=== PATIENT | male | born 1985 | race Caucasian/White ===

== ENCOUNTER 2017-06-10 12:14 | Day surgery (SDC) | payer BC ==
[~2017-06-10] VITALS: Ht 175.3 cm; Wt 99.8 kg
--- NOTE | ~2017-06-10 | OR ---
[facility] [address] [facility] [place], [place] [address] Draft DATE OF PROCEDURE: 06/10/17 PREOPERATIVE DIAGNOSIS: Perirectal abscess. POSTOPERATIVE DIAGNOSIS: Perirectal abscess. PROCEDURE Evaluation under anesthesia, straight sigmoidoscopy, aspiration of abscess and sending some of that pus for culture, incision and drainage of abscess with packing with 0.5-inch Nu Gauze. SURGEON: Ayo France MD. INDICATIONS FOR PROCEDURE This is a fellow who has had this similar episode, he said this is the 4th time. It has already spontaneously drained before, this time he did not. He is from somewhere near [facility] here working at [employer]. The options of trying to drain this in the ED versus going to the OR were discussed by me plus VIKKI about complications, expected contact of surgery and he wanted to have it done in the OR. DESCRIPTION OF PROCEDURE He was taken to the operating room. They gave him a general anesthesia with LMA, gave him a couple of grams of Ancef because it had been a while since he got antibiotics since we had admitted him because he ate right before he came to the ER and had to let that food go through him. He had LMA anesthesia, prepped and draped in a sterile fashion after he was put in high stirrups. I did a digital anal exam. He had some pretty generous external hemorrhoids I could see when he was in high stirrups or internal wounds that were bulging out and I could not feel anything on that exam. I then did a straight sigmoidoscopy to about 16 cm. Saw no internal opening that I could identify as a cause of this. I then aspirated the area of fluctuance and got out about 4 mL of what looked like bloody pus and then I did a cruciate incision about a centimeter in each direction over the aspiration point. Pus came out with blood also. I then probed it gently with a clamp to see which directions everything went. It went toward the midline posteriorly, but did not across it. It went toward the anus. All in all, the abscess cavity was a good inch and a half by inch and a half. I then irrigated copiously with saline. I used Bovie cautery to extinguish some subcutaneous skin bleeding, packed it with a 4 x 4, held pressure on it, waited for him to mix up my concoction of 80 mg of tobramycin and 300 Cleocin, irrigated with about 300 mL of saline, irrigated with about 100 mL of that mixture. I then packed it with 0.5-inch dry Nu Gauze, put fluffs on, put ABD pad on and then taped it in place and then had him put net panties on it. Estimated blood loss was about 5 mL. Sponge and needle counts were inspected for report and is correct multiple times. He tolerated it well. He goes to the recovery room. We will PATIENT NAME: ERROL KAY OPERATIVE REPORT DATE OF : 85 PHYSICIAN: AYO FRANCE MD REPORT #: [id number] REPORT IS CONFIDENTIAL AND NOT TO BE RELEASED WITHOUT AUTHORIZATION [facility] [address] [place] [id number] Draft probably keep him in the hospital and I will send him home tomorrow. MD MOOSE Holland/Veronica /[id number] PATIENT NAME: ERROL KAY OPERATIVE REPORT DATE OF : 85 PHYSICIAN: AYO FRANCE MD REPORT #: [id number] REPORT IS CONFIDENTIAL AND NOT TO BE RELEASED WITHOUT AUTHORIZATION
--- NOTE | ~2017-06-10 | DS ---
[facility] [address] [place], [place] [address] Draft DATE OF DISCHARGE: 06/11/17 ADMISSION DIAGNOSES Recurrent perirectal abscess. Little bit overweight. Cigarette smoker. DISCHARGE DIAGNOSES Recurrent perirectal abscess. Little bit overweight. Cigarette smoker. OPERATIONS PERFORMED Evaluation under anesthesia. Straight sigmoidoscopy. Incision, drainage, and culture of perirectal abscess with packing. HISTORY The history was dictated by me, brought him in to the above mentioned procedure yesterday. He has done okay overnight. He had some itching. We put him on some Benadryl for that, stopped his Dilaudid, and he seems to be doing okay. He has had 1 sitz bath today and I advanced his drain out about an inch, taught him and his girlfriend how to do this. He is going to go home on Augmentin, Flagyl, Kefir, lactobacillus, Percocet, nicotine patches, and try to quit smoking per my recommendation, and I told him he will probably do the sitz bath b.i.d., have his girlfriend/fianc advance the packing out about an inch each time. He can take Advil in addition to the Percocet for further pain control. Maalox to get his bowels drawn, and if he gets too loose, he can stop that. Probably, I will see Dr. Singer in the office Monday or just to check him out and let Dr. Singer decide whether or not he should have be re packed when the packing comes out. I told if the packing came out, he should see Dr. Singer within a day or two and again let him monitor him. I am a [place] so I will be gone, yet he certainly can be followed up by the local general surgeon. With a little bit of luck, he will get over all of this. The patient apparently is from [place], [place], again somewhere near [place], [place] and for whatever reason, does not like [facility] and wants to come here for further follow-up, so I recommended he see Dr. Singer. All in all, he should do okay. In addition, he started describing what sounds like a pilonidal dimple on his [id number] baby. I told him I cannot figure out what he is talking about by his or his girlfriend's description and told to bring the baby when they see Dr. Singer and let Dr. Singer peak at the baby's bottom and give further advice. I will be talking to Dr. Singer about this fellow tomorrow and we wish everybody continue luck with his care. PATIENT NAME: ERROL KAY DISCHARGE SUMMARY DATE OF : 85 PHYSICIAN: AYO FRANCE MD REPORT #: [id number] REPORT IS CONFIDENTIAL AND NOT TO BE RELEASED WITHOUT AUTHORIZATION [facility] [address] [place], [place] [address] Draft MD MOOSE Holland/Tanvil /[id number] cc: Abdulkadir Singer MD PATIENT NAME: ERROL KAY DISCHARGE SUMMARY DATE OF : 85 PHYSICIAN: AYO FRANCE MD REPORT #: [id number] REPORT IS CONFIDENTIAL AND NOT TO BE RELEASED WITHOUT AUTHORIZATION
--- NOTE | ~2017-06-10 | HP ---
[facility] [address] [place], [place] [address] Draft DATE OF ADMISSION: 06/10/17 IDENTIFICATION This is a 32-year-old male, who came to the ER with perirectal pain. The patient thought it was a pilonidal cyst that he has had in the past. He said he has had this condition 3 prior times and then spontaneously the draining got well. He is here from somewhere close to in [place], [place], [place] of [place], working at the [employer] and this has been bothering him for a week. He denies fevers and no change in bowel movements and he denies any problems with incontinence, etc. On examination of his perirectal area, he has a postanal abscess, a little bit off to the right. Too tender to do a rectal exam. The option of trying to drain this in the ED versus taking him to the OR, p u t him in high stirrups, thorough evaluation under anesthesia, straight sigmoidoscopy, culture, incision and drainage was discussed by me with him and the different advantages and disadvantages of each. The disadvantage of going to the OR is mostly cost. T h e advantage is trying to get this things, so it do not come back anymore. He chose to have it done in the OR. Unfortunately he ate at 10:30 this morning and drank a little bit juice an hour ago. I discussed this issue with the Anesthesia and nurse film splicer, Sangita Saldana and we have to come to the conclusion that 4 o'clock this afternoon will probably be reasonable time to do this case, so we have it all setup for 1600. I told the ER doctor to go ahead and get labs, PT, PTT, chem panel, CBC, and give him some Zosyn 3.375 g and 500 mg of Flagyl and I will probably augment that with some Ancef when we get to the OR right before we cut. PARQ is accomplished by myself with this patient concerning my primary recommendation is to do this in the operating room. M y experience with these over the years and my training, the expected potential complications, which include, but are not limited to bleeding, infection, , local organ injury, needing further procedures, fistula, incontinence, and my experience with the same over the years, he wishes to proceed. We plan to do this operation at 1600 today. Probably, keep him here overnight, teach him how to do sitz baths with Epsom salt in the morning and how to advance the drain and get him home tomorrow. PAST MEDICAL HISTORY: He is allergic to nothing. MEDICATIONS: He takes no medicines. PAST SURGICAL HISTORY Prior surgery includes tonsils and adenoids. Some type of prostrate/bladder problem about 5 years ago when he had clots in his bladder. He has a history of plus/minus hypertension. Denies diabetes, tuberculosis, seizures or transfusion. SOCIAL HISTORY PATIENT NAME: ERROL KAY HISTORY AND PHYSICAL DATE OF : 85 PHYSICIAN: AYO PERRY MD REPORT #: [id number] REPORT IS CONFIDENTIAL AND NOT TO BE RELEASED WITHOUT AUTHORIZATION [facility] [address] [place], [place] [address] Draft Smokes Camel Crush less than a pack a day. Has not drank alcohol for over 2 years. There is no history of thromboembolic disease. He lives with a lady, his fiance. He has a [id number] child. 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 His hobby is [employer]. He lives in [place], [place]. REVIEW OF SYSTEMS Is positive for being a little bit overweight. Negative for FL, negative for stroke, negative for angina. Negative for lung disease yet. Negative for GI problems. Negative for musculoskeletal problems. Negative for problems except what he told me about his bladder issues 5 years ago. Negative for skin problems. Negative for blood problems such as hepatitis. Negative for endocrine problems. Negative for lymphatic problems. Negative for neurologic problems such as anxiety, depression, etc. IMPRESSION My impression is a robust young male who has this recurrent perirectal abscess issue, I believe, right now I am 99% sure this is perirectal abscess. I do not think he needs any further imaging as I think it is ready to pop on its own. PLAN Plan is to take him to the operating room, do EUA, straight sigmoidoscopy, culture, incise and drain, and tuck him in for the night and send him home in the morning as long as everything goes okay. I will teen counselor him about quitting smoking at some point, and we wish him well and expect him to do well. Ayo Perry MD JH/Tanvil /[id number] PATIENT NAME: ERROL KAY HISTORY AND PHYSICAL DATE OF : 85 PHYSICIAN: AYO PERRY MD REPORT #: [id number] REPORT IS CONFIDENTIAL AND NOT TO BE RELEASED WITHOUT AUTHORIZATION
--- NOTE | 2017-06-10 14:30 | NUR ---
PT ARRIVED FROM ED. ALERT AND ORIENETED. RATING PAIN NEAR ANUS 6/10, DENIES NAUSEA OR OTHER CONCERNS. TRANSFERRED TO BED INDEPENDENTLY. IV FLUSHES WELL. DARYN ANAL ABCESS MINIMALLY RED, NO DRAINAGE OR ODOR NOTED. PT ORIENTED TO ROOM, CALL LIGHT WITHIN REACH.
--- NOTE | 2017-06-10 15:50 | NUR ---
PT TRANSFERRED TO OR. AMB TO STRETCHER INDEPENDENTLY. LR ON STRAIGHT TUBING HANGING AND SCD'S ON, SURGICAL PREP WIPES COMPLETE.
--- NOTE | 2017-06-10 16:38 | NUR ---
06/10/17 1638 Katerina Taylor 1630 - PT ARRIVED TO PACU. ST ELEVATION NOTED ON MONITOR. SHINE WORKER AWARE, STATES NO ACTION NEEDED. OPA IN PLACE, JAW HELD. PT NOT YET RESPONDING TO STIMULI
--- NOTE | 2017-06-10 17:30 | NUR ---
PT RETURNED FROM PACU, TRANSFERRED INDEPENDENTLY TO BED FROM STRETCHER. PT RATING PAIN AT SURGICAL SITE /10. WOUND PACKED AND DRESSED WITH GAUZE, ABD, AND TAPE. MODERATE AMOUNT OF SEROSANGUINOUS DRAINAGE NOTED. PT ALERT AND ORIENTED, DENIES NAUSEA. SATTING 98% ON RA BUT O2 LEFT ON 2L PER ORDERS. IV INFUSING WNL. CALL LIGHT AND PERSONAL BELONGINGS WITHIN REACH. AT BEDSIDE.
--- NOTE | 2017-06-10 19:05 | NUR ---
REPORT RECEIVED FROM OFFGOING RN. PT AT BEDSIDE, PT DENIES NEEDS AT THIS TIME. CALL LIGHT WITHIN REACH.
--- NOTE | 2017-06-10 20:05 | NUR ---
PT'S UTILIZES CALL LIGHT, EXPRESSES CONCERN AT SEROUS DRAINAGE PRESENT TO ABD PAD TO BUTTOCKS. ABD PAD REMOVED. GAUZE UNDERNEATH ABD WITH MODERATE SEROSANGUINEOUS DRAINAGE PRESENT. ABD PAD REPLACED, PAPER TAPE USED TO SECURE. PT TOLERATED WELL. PT UP TO USE THE BATHROOM WITH SBA, TOLERATED WELL, ABLE TO VOID 250 ML. PT RATING PAIN 6/10 TO DAYRN AREA. REQUETS PRN PAIN MEDICATION. PRN DILAUDID TO BE ADMINISTERED.
--- NOTE | 2017-06-10 20:20 | NUR ---
PT ASSESSMENT COMPLETED. MEDICATION INCLUDING PRN DILAUDID ADMINISTERED. PT REPORTS NAUSEA AFTER DILAUDID ADMINISTRATION. PRN ZOFRAN GIVEN. PT STATES RELIEF. MD IN ROOM, DISCUSSED POC WITH PT AND HIS SIGNIFICANT OTHER. PT DENIES OTHER NEEDS AT THIS TIME. CALL LIGHT WITHIN REACH.
--- NOTE | 2017-06-10 22:36 | NUR ---
PT UTILIZES CALL LIGHT, REQUESTS PRN PAIN MEDCIATION. RATES PAIN TO DARYN AREA 6/10. OXYCODONE X2 TABS ADMINISTERED. PT UP TO USE THE BATHROOM WITH SBA. TOLERATED WELL. PT DENIES NEEDS AT THIS TIME. CALL LIGHT WITHIN REACH.
--- NOTE | 2017-06-11 00:30 | NUR ---
PT REPORTS PAIN 03/04. REQUESTS PRN PAIN MEDICATION EDUCATION PROVIDED REGARDING IV PAIN MEDICATION VERSUS ORAL PAIN MEDICATION. PT STATES UNDERSTANDING. PRN DILAUDID ADMINISTERED. PT ASSESSMENT COMPLETE. ABD PAD DRY AND INTACT. SEROSANGUINEOUS SHADOWING TO GAUZE BENEATH REMAINS UNCHANGED FROM PREVIOUS ASSESSMENT. PT DENIES OTHER NEEDS AT THIS TIME. CALL LIGHT WITHIN REACH. REMINDED PT TO CALL FOR ASSISTANCE, UNDERSTANDING STATED.
--- NOTE | 2017-06-11 00:47 | NUR ---
PT ASSESSMENT COMPLETE. NO NEW DRAINAGE NOTED TO ABD PAD OR MESH UNDERPANTS. PT C/O PAIN, 03/04. REQUESTS PAIN MEDICATION. PRN DILAUDID ADMINISTERED. PT DENIES OTHER NEEDS AT THIS TIME. CALL LIGHT WITHIN REACH.
--- NOTE | 2017-06-11 02:38 | NUR ---
PT UP TO USE THE BATHROOM, REPORTS THAT PAIN UP TO 7/10. REQUESTS PRN PAIN MEDICATION. OXYCODONE ADMINISTERED X 2. PT ASKS FOR SNACK, BUTTER CRACKERS PROVIDED. PT DENIES OTHER NEEDS AT THIS TIME. CALL LIGHT WITHIN REACH. PT'S REMAINS AT BEDSIDE.
--- NOTE | 2017-06-11 05:20 | NUR ---
PT ASSESSMENT COMPLETED. UNCHANGED FROM PREVIOUS ASSESSMENTS. PT RATES PAIN 03/04. PRN DILAUDID ADMINISTERED. PT REPORTS SLIGHT ITCHING, "MOSTLY TO BUTTOCKS UNDER TAPE, AND UNDER SCD'S". PT VISUALIZED ITCHING HIS NOSE. PT STATES IT "ISN'T TOO BAD", BUT AGREES TO TAKE ANTI-PURITIC MEDICATION IF AVAILABLE. PHONE CALL TO MD REGARDING NEW ONSET OF ITCHING. PRN BENADRYL ORDERED, TO BE ADMINISTERED. DILAUDID DC'D. EDUCATION TO BE PROVIDED REGARDING DC OF DILAUDID.
--- NOTE | 2017-06-11 06:07 | NUR ---
PT RESTING OFF AND ON THROUGHOUT THE SHIFT. PRN PERCOCET X 2 TABS AND DILAUDID GIVEN. PAIN WELL CONTROLLED. ITCHING REPORTED THIS AM. DILAUDID DC'D PER , BENADRYL ADMINISTERED FOR ITCHING. ABD PAD CHANGED LAST EVENING FOR SLIGHT SEROUS DRAINAGE PRESENT. REMAINS C/D/I AT THIS TIME, GAUZE UNDERNEATH WITH MODERATE AMNT OF SEROSANGUINEOUS DRAINAGE PRESENT, UNCHANGED THROUGHOUT THIS SHIFT. PT AMBULATING WITH SBA. UO BORDERLINE. LR @ 150.
--- NOTE | 2017-06-11 08:15 | NUR ---
PT AWAKE IN BED UPON ENTERING ROOM. AMB TO RESTROOM INDEPENDENTLY TO VOID. AMB BACK TO BED, DR. MONAE IN TO ASSESS SURGICAL SITE AND REDRESS WITH GAUZE AND ABD PAD. SMALL TO MODERATE AMOUNT OF SEROSANGUINOUS DRAINAGE NOTED ON OLD DRESSING. PT C/O 05/04 PAIN, MEDICATED WITH 2 TABS PERCOCET. PT ALERT AND ORIENTED, DENIES PAIN OR OTHER CONCERNS AT THIS TIME. AT BEDSIDE. CALL LIGHT WITHIN REACH.
--- NOTE | 2017-06-11 11:15 | NUR ---
PT RECIEVED WARM SALINE SITZ BATH FOR [id number] FRANCE. PT AMB TO BED AND DR. MONAE REDRESSED SURGICAL SITE. SMALL AMOUNT OF PACKING CUT AND REDRESSED WITH GAUZE AND ABD PAD, HELD IN PLACE WITH KNIT UNDERWEAR. PT PAINFUL AFTER PROCEDURE. PRN MEDS GIVEN. AT BEDSIDE. CALL LIGHT WITHIN REACH.
[2017-06-11] MEDS ORDERED: AUGMENTIN 875-1 EACH PO (12:37)
[2017-06-11] MEDS ORDERED: FLAGYL500 MG PO (12:38)
[2017-06-11] MEDS ORDERED: PERCOCET 5-3251 EACH PO (12:39)
[2017-06-11] MEDS ORDERED: NICOTINE PATCH1 EACH TD ×3 (12:40→12:42)
--- NOTE | 2017-06-11 14:00 | NUR ---
PT MEDICATED WITH SCHEDULED MOTRIN. IV DC'D, SITE WITHOUT REDNESS OR INFLAMMATION. PT DRESSED IN HOME CLOTHING, DC INSTRUCTIONS AND PRESCRIPTION GIVEN TO PT AND , QUESTIONS ANSWERED. DR. MONAE IN WITH PT AT THIS TIME.
== END 2017-06-11 14:22 | disposition home or self-care (01) ==
LOC: ED 12:14 → DS 13:15 → ED 13:15 → MS 13:15 → DS 06-11 14:22
PROVIDERS: Surgery
PROC: 0DJD8ZZ Inspection of Lower Intestinal Tract, Via Natural or Artificial Opening Endoscopic (ICD-10-PCS; 2017-06-10)
PROC: 0J990ZZ Drainage of Buttock Subcutaneous Tissue and Fascia, Open Approach (ICD-10-PCS; principal; 2017-06-10 15:55)
DX: K61.1 Rectal abscess (principal); F17.210 Nicotine dependence, cigarettes, uncomplicated; L29.9 Pruritus, unspecified; K64.4 Residual hemorrhoidal skin tags; E66.3 Overweight; Z68.32 Body mass index [BMI] 32.0-32.9, adult
CPT/HCPCS: 00320; 00902; 80053; 85025; 85610; 85730; 87070; 87075; 87076; 87077; 87088; 87184; 87185; 87205; 96365; 96375; 99285; J0690; J1170; J1885; J2405; J2543; J3010; J3260; J7120